=== PATIENT | female | born 1970 | race Caucasian/White ===

== ENCOUNTER 2019-10-07 20:49 | Emergency (ER) | payer OTHER | END 2019-10-07 22:30 | disposition other institution (70) | LOC: ED 20:49 | DX: Z02.89 Encounter for other administrative examinations (principal) | CPT/HCPCS: J7030 ==

== ENCOUNTER 2019-10-07 20:49 | Emergency (ER) | payer SELFPAY ==
[~2019-10-07] VITALS: Ht 167.6 cm; Wt 81.6 kg
[2019-10-07 20:57] VITALS: BP 146/92; Ht 167.6 cm; Wt 81.6 kg
== END 2019-10-07 22:30 | disposition other institution (70) ==
LOC: ED 20:49
DX: R25.1 Tremor, unspecified (principal); I10 Essential (primary) hypertension; Z88.8 Allergy status to other drugs, medicaments and biological substances; Z88.6 Allergy status to analgesic agent
CPT/HCPCS: Q0162